=== PATIENT | female | born 2000 ===

== ENCOUNTER 2021-10-15 20:07 | Emergency (ER) | payer SELFPAY ==
[2021-10-15 20:21] VITALS: BP 115/77
[2021-10-15 21:28] LABS: Bilirubin,Urine NEG (Negative); Blood,Urine NEG (Negative); Color,Urine Straw (Yellow); Protein,Urine <15 mg/dL mg/dL (Negative); Urobilinogen,Urine < 2.0 mg/dL (<2.0)
== END 2021-10-15 23:00 | disposition left against medical advice (07) ==
LOC: ED 20:07
DX: R10.9 Unspecified abdominal pain (principal); Z53.21 Procedure and treatment not carried out due to patient leaving prior to being seen by health care provider
CPT/HCPCS: 81001; 87086